=== PATIENT | female | born 1960 | race Caucasian/White ===

== ENCOUNTER → 2018-07-10 | Outpatient (CLI) | payer BC | LOC: M.RAD 16:52 | DX: R07.89 Other chest pain (principal); R05 Cough ==

== ENCOUNTER → 2019-09-03 | Outpatient (CLI) | payer BC | LOC: M.RAD 08-27 13:30 | DX: M85.80 Other specified disorders of bone density and structure, unspecified site (principal); Z78.0 Asymptomatic menopausal state ==